=== PATIENT | female | born 1995 | race Caucasian/White ===

== ENCOUNTER 2017-06-11 11:19 | Emergency (ER) | payer OTHER ==
[2017-06-11 11:59] VITALS: BP 109/76; PULSE 80; RESP 20; TEMP 98.9; O2SAT 97
--- NOTE | 2017-06-11 13:55 | C.PDOC ---
History Of Present Illness Radha Amador is a 22 year old female, with a past medical history of asthma, who presents to the emergency department c/o right eye redness and pain onset for x 5 days. Patient states symptoms started while in [place], she denies trauma. Patient states eye was swollen, pt took out contact, and swelling decreased, and pain decreased. Patient is also c/o vaginal irritation, discharge and urinary symptoms onset for x 5 days. No further medical complaints. PMD: None provided. Time Seen by Provider: 06/11/17 13:26 Chief Complaint (Nursing): Eye Problem History Per: Patient History/Exam Limitations: no limitations Onset/Duration Of Symptoms: Days (x5) Current Symptoms Are (Timing): Still Present Injury To Eye?: No Quality: "Pain" Associated Symptoms: Pain, Swelling Past Medical History Reviewed: Historical Data, Nursing Documentation, Vital Signs Vital Signs: Last Vital Signs Temp 98.9 F 06/11/17 11:54 Pulse 80 06/11/17 11:54 Resp 20 06/11/17 11:54 BP 109/76 06/11/17 11:54 Pulse Ox 97 06/13/17 09:41 - Medical History PMH: Anxiety, Asthma, Depression, Migraine Surgical History: No Surg Hx Family History: States: Unknown Family Hx - Social History Hx Tobacco Use: No Hx Alcohol Use: No Hx Substance Use: No - Immunization History Hx Tetanus Toxoid Vaccination: No Hx Influenza Vaccination: Yes Hx Pneumococcal Vaccination: No Review Of Systems Eyes: Positive for: Pain, Redness (and swelling). Negative for: Other (trauma) Gastrointestinal: Negative for: Abdominal Pain Genitourinary: Positive for: Dysuria, Frequency, Vaginal Discharge, Other ( vaginal irritation). Negative for: Vaginal Bleeding Physical Exam - Physical Exam Skin: Normal Color, Warm, Dry Head: Atraumatic Eye(s): bilateral: PERRL, EOMI, Other (mild right medial conjuctival injection. Patient currently wearing contact lens in left eye only, does not have glasses with her, unable to accurately assess right eye visual acuity. ) Gastrointestinal/Abdominal: Soft, No Tenderness Back: No CVA Tenderness Pelvic: Other (Patient left before perlvic exam was done) Neurological/Psych: Oriented x3, Normal Speech, Normal Cognition ED Course And Treatment O2 Sat by Pulse Oximetry: 97 (RA) Pulse Ox Interpretation: Normal Medical Decision Making Medical Decision Making: Initial Impression: Conjunctivitis, UTI Initial Plan: --Chlamydia/GC RNA, TMA --Fluroscein 1mg OS --Genital culture --POC Urine --Urinalysis --reevaluation --pt does not want to wait for mpr room to be free for pelvic exam. Urine with + 1 le and 5 wbc with symptoms. will tx. no fluorescein uptakenoted. 14:58 --This patient is choosing to leave against medical advice. I have personally explained to the pt that choosing to do so may result in permanent bodily harm or . I have discussed at great length that without further evaluation and monitoring there may be unforeseen circumstances and/or deterioration causing permanent bodily harm or as a result of their choice. The pt verbalized these risks back to the physician in laymans terms. The pt is alert, oriented, and shows the mental capacity to make clear decisions regarding the pts health care at this time. The pt continues to wish to leave against medical advice. In light of the pts decision to leave AMA, follow-up has been arranged and the pt is aware of the importance of following up as instructed. The pt has been advised that they should return to the ED immediately if they change their mind at any time, or if their condition begins to change or worsen in any way. Disposition Counseled Patient/Family Regarding: Studies Performed, Diagnosis, Need For Followup, Rx Given - Disposition Referrals: Donato Velez MD [Staff Provider] - Johann Venegas DO [Staff Provider] - Disposition: AGAINST MEDICAL ADVICE Disposition Time: 14:59 Condition: STABLE Additional Instructions: Please use eye drops and antibiotics as prescribed. Please follow up with Dr Velez, eye doctor and with Dr Venegas, in the next ffew days. Do not wear contact lenses in right eye until evaluated by eye doctor. Prescriptions: Ciprofloxacin 0.3% [Ciloxan 0.3% Ophth SOLN] 1 drop RIGHTEYE Q4 #1 bottle Nitrofurantoin Macrocrystals [Macrobid] 100 mg PO BID #14 cap Instructions: Urinary Tract Infection in Women (ED), Conjunctivitis (ED) Forms: [facility] (Sammarinese), General Discharge Instructions - Clinical Impression Clinical Impression: Conjunctivitis, UTI (urinary tract infection) - Scribe Statement Brian Segura All medical record entries made by the Scribe were at my direction and personally dictated by me. I have reviewed the chart and agree that the record accurately reflects my personal performance of the history, physical exam, medical decision making, and the department course for this patient. I have also personally directed, reviewed, and agree with the discharge instructions and disposition.
[2017-06-11] MEDS ORDERED: Fluorescein 1 mg Ophthalmic Strip OS ONE (14:00)
[2017-06-11] MEDS ORDERED: Tetracaine 0.5% Ophth (OR ONLY) ONE (14:14)
[2017-06-11] MEDS ORDERED: Fluorescein 1 mg Ophthalmic Strip ONE (14:14)
[2017-06-11 14:31] LABS: SQUAMOUS EPITHIAL 2 /hpf (0-5); URINE BACTERIA RARE (<OCC); URINE BILIRUBIN NEGATIVE (NEGATIVE); URINE BLOOD NEGATIVE (NEGATIVE); URINE CLARITY Clear (Clear); URINE COLOR Straw (YELLOW); URINE GLUCOSE (UA) NORMAL (Normal); URINE NITRATE NEGATIVE (NEGATIVE); URINE PROTEIN NEGATIVE (NEGATIVE); URINE UROBILINOGEN NORMAL mg/dL (0.2-1.0)
[2017-06-11 14:32] LABS: URINE LEUKOCYTE ESTERASE 1+ Leu/uL (Negative)
== END 2017-06-11 15:05 | disposition left against medical advice (07) ==
LOC: C.ER 11:19
DX: H10.9 Unspecified conjunctivitis (principal); N39.0 Urinary tract infection, site not specified

== ENCOUNTER 2017-08-01 21:09 | Emergency (ER) | payer SELFPAY ==
[2017-08-01 21:25] VITALS: BP 110/73; PULSE 70; RESP 20; TEMP 98.3; O2SAT 98
--- NOTE | 2017-08-01 21:48 | C.PDOC ---
History Of Present Illness 22 yr old female presents to the ER with complaints of vaginal spotting after having her menstrual cycle on July 28. Patient reports she had unprotected sex and took Plan B on July 22 . Patient would like to know if she had an miscarriage. Patient reports LMP was June 06. Patient states she has irregular menstrual. Patient has history of anxiety and has been evaluated numerous times for vague complaints. Denies fever, chest pain, SOB, nausea, vomiting, abdominal pain or dysuria. Time Seen by Provider: 08/01/17 21:29 Chief Complaint (Nursing): Abdominal Pain History Per: Patient History/Exam Limitations: no limitations Onset/Duration Of Symptoms: Days Past Medical History Reviewed: Historical Data, Nursing Documentation, Vital Signs Vital Signs: Last Vital Signs Temp 98.3 F 08/01/17 21:20 Pulse 70 08/01/17 21:20 Resp 20 08/01/17 21:20 BP 110/73 08/01/17 21:20 Pulse Ox 98 08/01/17 21:50 - Medical History PMH: Anxiety, Asthma, Depression, Migraine Family History: States: No Known Family Hx - Social History Hx Tobacco Use: No Hx Alcohol Use: No Hx Substance Use: No - Immunization History Hx Tetanus Toxoid Vaccination: No Hx Influenza Vaccination: Yes Hx Pneumococcal Vaccination: No Review Of Systems Except As Marked, All Systems Reviewed And Found Negative. Constitutional: Negative for: Fever Cardiovascular: Negative for: Chest Pain Respiratory: Negative for: Shortness of Breath Gastrointestinal: Negative for: Nausea, Vomiting, Abdominal Pain Genitourinary: Positive for: Other (+ vaginal spotting). Negative for: Dysuria Physical Exam - Physical Exam Appears: Non-toxic, No Acute Distress Skin: Warm, Dry Oral Mucosa: Moist Respiratory: Normal Breath Sounds Gastrointestinal/Abdominal: Normal Exam, Soft, No Tenderness, No Guarding, No Rebound Extremity: Normal ROM, No Swelling Neurological/Psych: Oriented x3, Normal Speech ED Course And Treatment - Laboratory Results Lab Interpretation: Normal (ua neg) Urine POC: Negative O2 Sat by Pulse Oximetry: 98 (RA) Pulse Ox Interpretation: Normal Medical Decision Making Medical Decision Making: PLAN: * HCG * Urinalysis NO normal mentstural period- may have been slightly delayed due to using Plan-B on 07/22/17 Disposition Doctor Will See Patient In The: Office Counseled Patient/Family Regarding: Studies Performed, Diagnosis - Disposition Disposition: HOME/ ROUTINE Disposition Time: 22:25 Condition: GOOD Forms: [facility] (Polish) - Clinical Impression Clinical Impression: Menstrual period late - Scribe Statement The provider has reviewed the documentation as recorded by the Amarisibe Ligia Sanchez Provider Attestation: All medical record entries made by the Amarisibramandeep were at my direction and personally dictated by me. I have reviewed the chart and agree that the record accurately reflects my personal performance of the history, physical exam, medical decision making, and the department course for this patient. I have also personally directed, reviewed, and agree with the discharge instructions and disposition.
[2017-08-01 22:22] LABS: SQUAMOUS EPITHIAL 3 /hpf (0-5); URINE BACTERIA RARE (<OCC); URINE BILIRUBIN NEGATIVE (NEGATIVE); URINE BLOOD NEGATIVE (NEGATIVE); URINE CLARITY Hazy (Clear); URINE COLOR Yellow (YELLOW); URINE GLUCOSE (UA) NORMAL (Normal); URINE LEUKOCYTE ESTERASE 1+ Leu/uL (Negative); URINE NITRATE NEGATIVE (NEGATIVE); URINE PROTEIN NEGATIVE (NEGATIVE)
== END 2017-08-01 22:36 | disposition home or self-care (01) ==
LOC: C.ER 21:09
DX: N91.0 Primary amenorrhea (principal)

== ENCOUNTER 2017-09-19 14:11 | Emergency (ER) | payer OTHER ==
[2017-09-19 14:25] VITALS: O2SAT 100
--- NOTE | 2017-09-19 16:23 | CT ---
PROCEDURE: CT scan brain dated 09/19/2017 HISTORY: injury COMPARISON: Comparison made with prior CT scan of the brain dated 03/08/2016 TECHNIQUE: Axial computed tomography images were obtained through the head/brain without intravenous contrast. Radiation dose: Total exam DLP = mGy-cm. This CT exam was performed using one or more of the following dose reduction techniques: Automated exposure control, adjustment of the mA and/or kV according to patient size, and/or use of iterative reconstruction technique. FINDINGS: HEMORRHAGE: No intracranial hemorrhage. BRAIN: No mass effect or edema. No atrophy or chronic microvascular ischemic changes. VENTRICLES: Unremarkable. No hydrocephalus. CALVARIUM: Unremarkable. PARANASAL SINUSES: Unremarkable as visualized. No significant inflammatory changes. MASTOID AIR CELLS: Unremarkable as visualized. No inflammatory changes. OTHER FINDINGS: None. IMPRESSION: No acute intracranial hemorrhage.
--- NOTE | 2017-09-19 16:26 | RAD ---
HISTORY: Cough COMPARISON: No prior. TECHNIQUE: Chest PA and lateral FINDINGS: LUNGS: No active pulmonary disease. PLEURA: No significant pleural effusion identified. No pneumothorax apparent. CARDIOVASCULAR: Normal. OSSEOUS STRUCTURES: No significant abnormalities. VISUALIZED UPPER ABDOMEN: Normal. OTHER FINDINGS: None. IMPRESSION: No active disease.
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
[2017-09-19 16:36] VITALS: BP 98/64; PULSE 78; RESP 18; TEMP 97.8
== END 2017-09-19 17:02 | disposition home or self-care (01) ==
LOC: C.ER 14:11
DX: S16.1XXA Strain of muscle, fascia and tendon at neck level, initial encounter (principal); S29.012A Strain of muscle and tendon of back wall of thorax, initial encounter; V49.9XXA Car occupant (driver) (passenger) injured in unspecified traffic accident, initial encounter